=== PATIENT | female | born 1955 | race Caucasian/White ===

== ENCOUNTER 2016-12-27 10:23 | Emergency (ER) | payer OTHER ==
[2016-12-27] MEDS ORDERED: ASPIRIN 81 MG CHEWABLE TABLETS PO ONE (10:37)
[2016-12-27 10:43] VITALS: TEMP 98.1; BMI 30.4
--- NOTE | 2016-12-27 10:52 | PDOC ---
History of Present Illness - General History Source: Patient Exam Limitations: No Limitations <Margaret Mathew - Last Filed: 12/27/16 13:03> <Carlos Alberto Diggs - Last Filed: 12/27/16 17:09> - General Chief Complaint: Chest Pain Stated Complaint: CHEST PAIN Time Seen by Provider: 12/27/16 10:30 - History of Present Illness Initial Comments: 12/27/16 11:10 The patient is a 61-year-old woman, lives at home, accompanied by Scrap Breaker, with a significant past medical history of schizophrenia, arthritis and fibroids who presents to the emergency department via EMS for further evaluation of chest pain. Patient states that she typically experiences right sided chest pain, which is sharp in nature, non-radiating with an 8/10 in severity, which is chronic and unchanged from per previous episode. She states she has undergone outpatient tests for this pain (no recent changes in this particular symptom). Patient presents today, to the Emergency Department, as she experienced new pain in her chest. She states that she was in her usual state of health, approximately 4 days ago, at home listening to the radio, when she suddenly felt a constant, atraumatic, mid-sternal chest pressure sensation , described as a bubble in her chest, that comes and goes. She does not provide any exacerbating/associated symptoms. She states that walking around makes her pain better. She denies heartburn sensations, cough, shortness of breath, visual changes, palpitations, dizziness,lightheadedness syncope, neck pain, jaw pain, lower extremity pain/swelling, nausea, vomiting,diarrhea. Allergies: None Known Drug Allergies Social History: Lives at home alone. Immediate family is . No tobacco, ETOH or recreational drug use. Family Past Medical history: Brother (Ca). No known history of heart disease, as per patient. Primary Care Physician: Dr. Jyoti Warren (Located in [place], [place]) (patient's last appointment was approximately 2 months ago) (Margaret Mathew) Past History <Margaret Mathew - Last Filed: 12/27/16 13:03> - Past Medical History Psychiatric Problems: Yes - Psycho/Social/Smoking Cessation Hx Anxiety: Yes Suicidal Ideation: No Smoking History: Never smoked Have you smoked in the past 12 months: No Information on smoking cessation initiated: No Hx Alcohol Use: No Drug/Substance Use Hx: No <CaterinaCarlos Alberto - Last Filed: 12/27/16 17:09> - Past Medical History Allergies/Adverse Reactions: Allergies Allergy/AdvReac Type Severity Reaction Status Date / Time No Known Allergies Allergy Verified 06/15/15 16:19 Home Medications: Ambulatory Orders Haloperidol Decanoate [Haldol Decanoate 100] 87.5 mg IM MONTHLY 12/27/16 Mag Hydrox/Al Hydrox/Simeth [MAALOX *SUSPENSION* -] 30 ml PO Q6H PRN #1 bottle 12/27/16 Ranitidine HCl [Zantac 75] 75 mg PO DAILY #10 tablet 12/27/16 Review of Systems - Review of Systems Able to Perform ROS?: Yes <Margaret Mathew - Last Filed: 12/27/16 13:03> <Carlos Alberto Diggs - Last Filed: 12/27/16 17:09> - Review of Systems Comments:: 12/27/16 11:10 CONSTITUTIONAL: No reported: Fever, Chills, Diaphoresis, Generalized Weakness, Malaise, Loss of Appetite HEENT: No reported: Rhinorrhea, Nasal Congestion, Throat Pain, Throat Swelling, Difficulty Swallowing, Mouth Swelling, Ear Pain, Eye Pain, Visual Changes CARDIOVASCULAR: Reported: Chest Pain. No reported: Syncope, Palpitations, Irregular Heart Rate, Lightheadedness, Peripheral Edema RESPIRATORY: No reported: Cough, Shortness of Breath, SOB with Exertion, Orthopnea, Wheezing , Stridor, Hemoptysis GASTROINTESTINAL: No reported: Abdominal pain, Abdominal Distension, Nausea, Vomiting, Diarrhea, Constipation, Melena, Hematochezia GENITOURINARY: No reported: Dysuria, Frequency, Urgency, Hesitancy, Flank Pain, Genital Pain MUSCULOSKELETAL: No reported: Myalgia, Arthralgia, Joint Swelling, Back pain, Neck Pain SKIN: No reported: Rash, Itching, Pallor HEMEATOLOGIC/IMMUNOLOGIC: No reported: Easy Bleeding, Easy Bruising, Lymphadenopathy, Frequent infections ENDOCRINE: No reported: Unexplained Weight Gain, Unexplained Weight Loss, Heat Intolerance , Cold Intolerance NEUROLOGIC: No reported: Headache, Focal Weakness, Paresthesias, Vertigo, Lightheadedness, Unsteady Gait, Seizure, Mental Status Changes, Incontinence PSYCHIATRIC: Reported: History of Schizophrenia. (PriyankaMargaret) *Physical Exam <Margaret Mathew - Last Filed: 12/27/16 13:03> <Carlos Alberto Diggs - Last Filed: 12/27/16 17:09> - Vital Signs Last Vital Signs Temp Pulse Resp BP Pulse Ox 98.1 F 96 H 20 154/84 99 12/27/16 10:25 12/27/16 10:25 12/27/16 10:25 12/27/16 10:25 12/27/16 10:25 - Physical Exam Comments: 12/27/16 11:10 GENERAL: The patient is awake, alert, and fully oriented, Nontoxic - in no acute distress. HEAD: Normocephalic, atraumatic. EYES: extraocular movements intact, sclera anicteric, conjunctiva clear. ENT: Normal voice, Moist mucous membranes. NECK: Normal range of motion, supple LUNGS: Breath sounds equal, clear to auscultation bilaterally. No wheezes, no rhonchi, no rales. HEART: Regular rate and rhythm, without murmur, rub or gallop. ABDOMEN: Soft, nontender, normoactive bowel sounds. No guarding, no rebound.No CVA tenderness EXTREMITIES: Normal range of motion, no edema. No clubbing or cyanosis. No cords , erythema, or tenderness. NEUROLOGICAL: No facial assymetry, Normal speech, PSYCH: flat affect. SKIN: Warm, Dry, normal turgor. (PriyankaMargaret) Heart Score/ECG Review <Margaret Mathew - Last Filed: 12/27/16 13:03> <Carlos Alberto Diggs - Last Filed: 12/27/16 17:09> - ECG Impressions Comment:: 12/27/16 11:28 Twelve-lead EKG was performed and reviewed by me. There is normal sinus rhythm with a normal rate. Rate of 85 The axis is normal. There is normal R wave progression Nonspecific ST-T wave abnormality 12/27/16 16:46 no significant changes on repeat ekg (Carlos Alberto Diggs) ED Treatment Course - LABORATORY CBC & Chemistry Diagram: 12/27/16 10:42 12/27/16 10:42 <Margaret Mathew - Last Filed: 12/27/16 13:03> - LABORATORY CBC & Chemistry Diagram: 12/27/16 10:42 12/27/16 10:42 <Carlos Alberto Diggs - Last Filed: 12/27/16 17:09> - ADDITIONAL ORDERS Additional order review: Laboratory Results 12/27/16 12/27/16 16:00 10:42 Sodium 140 Potassium 4.3 Chloride 107 Carbon Dioxide 25 Anion Gap 8 BUN 11 D Creatinine 0.6 Creat Clearance w eGFR > 60 Random Glucose 95 Calcium 9.5 Total Bilirubin 0.3 D AST 14 L D ALT 18 D Alkaline Phosphatase 119 H Creatine Kinase 39 50 Troponin I < 0.02 < 0.02 Total Protein 7.3 Albumin 3.5 Lipase 142 12/27/16 10:42 RBC 4.24 MCV 93.0 MCHC 34.0 RDW 13.3 MPV 7.9 Neutrophils % 81.6 Lymphocytes % 11.1 D Monocytes % 5.8 Eosinophils % 1.0 Basophils % 0.5 - RADIOLOGY Radiology Studies Ordered: Category Date Time Status CHEST X-RAY PORTABLE* [RAD] Stat Radiology 12/27/16 10:37 Completed Radiograph Interpretation: 12/27/16 11:29 EXAM: RAD/CHEST X-RAY PORTABLE IMPRESSION: A single frontal portable projection of the chest at 10:52 AM is submitted. The heart size is within normal limits. The lung caballero are free of pulmonary infiltrates or pleural effusions. There is tortuosity of the thoracic aorta and degenerative changes of the thoracic spine. (Margaret Mathew) - Medications Given in the ED: ED Medications Discontinued Medications Generic Name Dose Route Start Last Admin Trade Name Walkerq PRN Reason Stop Dose Admin Al Hydroxide/Mg Hydroxide 30 ml 12/27/16 10:58 12/27/16 11:25 Mylanta Suspension - PO 12/27/16 10:59 30 ml ONCE ONE Administration Aspirin 162 mg 12/27/16 10:37 12/27/16 11:25 Asa - PO 12/27/16 10:38 Not Given ONCE ONE Famotidine/Sodium Chloride 20 50 mls @ 100 mls/hr 12/27/16 10:58 12/27/16 11:25 mg/ Miscellaneous IVPB 12/27/16 11:27 100 mls/hr ONCE ONE Administration Medical Decision Making <Margaret Mathew - Last Filed: 12/27/16 13:03> <Caterina,Carlos Alberto - Last Filed: 12/27/16 17:09> - Medical Decision Making 12/27/16 11:23 61y F hx of schizophrenia presents with 4 days of chest pain, R chets pain radiates to the epigastrium/substernal region - no tworse with food intake, exertion, no associated sob, n/v, back pain, abd pain. pt given ntg and asa by EMS. pts exam unremarkable. differential includes acs, pancratitis, gastritis, gb disease, will ck labs ekg, will give pepcid/maalox will reasess A portion of this note was documented by scribe services under my direction. I have reviewed the details of the note, within reason, and agree with the documentation with the following case summary and management plan written by me 12/27/16 14:45 labs reviewed neg trop x 1 pt feeling well will obtain trop at 4 hrs and erpeat ekg. 12/27/16 16:49 12/27/16 17:02 trop negative pt feeling improved currently asypmtomatic will d/c the pt with pmd fu will dc pt on pepcid, suspect her symptoms may be secondary to gastritis/reflux return precuations were discussed I discussed the physical exam findings, ancillary test results and final diagnoses with the patient. I answered all of the patient's questions. The patient was satisfied with the care received and felt comfortable with the discharge plan and treatment plan. The patient will call their primary care physician within 24 hours to arrange follow-up and will return to the Emergency Department with any new, persistent or worsening symptoms. (Carlos Alberto Diggs) *DC/Admit/Observation/Transfer <Margaret Mathew - Last Filed: 12/27/16 13:03> - Discharge Dispostion Admit: No <Carlos Alberto Diggs - Last Filed: 12/27/16 17:09> Diagnosis at time of Disposition: Atypical chest pain Gastritis Qualifiers: Gastritis type: unspecified gastritis Chronicity: unspecified Gastritis bleeding: without bleeding Qualified Code(s): K29.70 - Gastritis, unspecified, without bleeding - Discharge Dispostion Disposition: HOME Condition at time of disposition: Improved - Prescriptions Prescriptions: Mag Hydrox/Al Hydrox/Simeth [MAALOX *SUSPENSION* -] 30 ml PO Q6H PRN #1 bottle PRN Reason: Pain Ranitidine HCl [Zantac 75] 75 mg PO DAILY #10 tablet - Referrals Referrals: Lety Garcia MD [Primary Care Provider] - - Patient Instructions Printed Discharge Instructions: DI for Atypical Chest Pain, DI for Gastritis Additional Instructions: Return to the emergency department immediately with ANY new, persistent or worsening symptoms including any chest pain, shortness of breath or other concerns I suspect your pain might be secondary to gastritis please take Maalox and Pepcid as prescribed. Avoid any spicy foods, caffeinated foods, sour foods. You MUST call and follow up with your doctor tomorrow for further evaluation of your symptoms. Results were discussed with you. Please make sure your doctor reviews the results of your emergency evaluation. - Attestations Scribe Attestion: 12/27/16 11:10 Documentation prepared by Margaret Mathew, acting as biomedical manager for Carlos Alberto Diggs MD. (Margaret Mathew)
[2016-12-27] MEDS ORDERED: FAMOTIDINE 20 MG/50 ML IVPB 20 MG in PREMIX 50 IVPB ONE (10:58)
[2016-12-27] MEDS ORDERED: MAG HYDROX/AL HYDROX/SIMETH 355 ML ORAL.SUSP PO ONE (10:58)
[2016-12-27 11:10] LABS: BASOPHIL 0.5 % (0-2.0); MCH 31.6 pg (25.7-33.7); MEAN PLT VOLUME 7.9 fl (7.5-11.1); NEUTROPHILS 81.6 % (42.8-82.8); PLATELET COUNT 213 K/MM3 (134-434); RDW 13.3 % (11.6-15.6); WHITE BLOOD COUNT 10.9 K/mm3 (4.0-10.0)
[2016-12-27] MEDS ORDERED: MAG HYDROX/AL HYDROX/SIMETH 30 ML UNIT-DOSE CUP ONE (11:18)
[2016-12-27] MEDS ORDERED: FAMOTIDINE 20 MG/50 ML IVPB 50 ML IVPB ONE (11:19)
[2016-12-27 11:33] LABS: ALBUMIN 3.5 g/dl (3.4-5.0); ANION GAP 8 (8-16); BILIRUBIN,TOTAL 0.3 mg/dL (0.2-1.0); CALCIUM 9.5 mg/dL (8.5-10.1); CO2 25 mmol/L (21-32); CREATININE 0.6 mg/dL (0.55-1.02); GLUCOSE,RANDOM 95 mg/dL (74-106); SGOT/AST 14 U/L (15-37); SGPT/ALT 18 U/L (12-78); TOT PROT 7.3 g/dl (6.4-8.2)
[2016-12-27 11:36] LABS: ALK PHOS 119 U/L (45-117); TROPONIN I < 0.02 ng/ml (0.00-0.05)
--- NOTE | 2016-12-27 15:47 | EKG ---
Test Reason : Blood Pressure : / mmHG Vent. Rate : 085 BPM Atrial Rate : 085 BPM P-R Int : 122 ms QRS Dur : 076 ms QT Int : 386 ms P-R-T Axes : 075 044 052 degrees QTc Int : 459 ms NORMAL SINUS RHYTHM POSSIBLE LEFT ATRIAL ENLARGEMENT NONSPECIFIC ST ABNORMALITY ABNORMAL ECG WHEN COMPARED WITH ECG OF 14-JAN-2005 07:03, NO SIGNIFICANT CHANGE WAS FOUND Confirmed by BERNADETTE ARGUELLES MD ([id number]) on 12/27/2016 3:46:55 PM Referred By: Confirmed By:BERNADETTE ARGUELLES MD
[2016-12-27 16:37] LABS: TROPONIN I < 0.02 ng/ml (0.00-0.05)
[2016-12-27 17:24] VITALS: BP 160/90; PULSE 99
--- NOTE | 2016-12-28 13:22 | EKG ---
Test Reason : Blood Pressure : / mmHG Vent. Rate : 090 BPM Atrial Rate : 090 BPM P-R Int : 130 ms QRS Dur : 078 ms QT Int : 390 ms P-R-T Axes : 066 039 027 degrees QTc Int : 477 ms NORMAL SINUS RHYTHM POSSIBLE LEFT ATRIAL ENLARGEMENT NONSPECIFIC ST AND T WAVE ABNORMALITY PROLONGED QT ABNORMAL ECG WHEN COMPARED WITH ECG OF 27-DEC-2016 11:04, NONSPECIFIC T WAVE ABNORMALITY, WORSE IN ANTERIOR LEADS Confirmed by BERNADETTE ARGUELLES MD ([id number]) on 12/28/2016 1:21:38 PM Referred By: Confirmed By:BERNADETTE ARGUELLES MD
== END 2016-12-27 17:24 | disposition home or self-care (01) ==
LOC: JER 10:23
PROC: 3E033GC Introduction of Other Therapeutic Substance into Peripheral Vein, Percutaneous Approach (ICD-10-PCS; principal; 2016-12-27)
DX: K29.70 Gastritis, unspecified, without bleeding (principal); F20.9 Schizophrenia, unspecified; F41.9 Anxiety disorder, unspecified; M19.90 Unspecified osteoarthritis, unspecified site
CPT/HCPCS: 36415; 71010-TC; 80053; 82550; 83690; 84484; 85025; 93005; 93010; 96365; 99284-25